=== PATIENT | female | born 1960 | race Caucasian/White ===

== ENCOUNTER 2024-09-11 06:45 | Day surgery (SDC) | payer BC, OTHER ==
[2024-09-09 11:10] VITALS: BMI 20.1
[2024-09-11] MEDS ORDERED: LIDOCAINE HCL 1%, 10 MG/ML (20ML VIAL) ONE (09:59)
[2024-09-11] MEDS ORDERED: HEPARIN NA (PORCINE) 5,000 UNITS/ML 1ML VIAL ONE ×2 (09:59→11:58)
[2024-09-11] MEDS ORDERED: PROPOFOL 20 ML ONE ×5 (10:20→12:39)
[2024-09-11] MEDS ORDERED: MIDAZOLAM HCL 2 MG/2 ML SINGLE DOSE VIAL ONE (10:21)
[2024-09-11] MEDS: ceFAZolin SODIUM 1 GM VIAL IVPB ONE (10:57)
[2024-09-11] MEDS: LIDOCAINE HCL 1%, 10 MG/ML (50 mL VIAL) INF ONE (11:00)
[2024-09-11] MEDS ORDERED: ASPIRIN COATED 81 MG TABLET.EC ONE (13:28)
[2024-09-11] MEDS ORDERED: ONDANSETRON 4 MG/2 ML VIAL ONE (14:23)
[2024-09-11] MEDS: RIVAROXABAN 2.5 MG TABLET PO SCH (14:28)
[2024-09-11] MEDS: ONDANSETRON 4 MG/2 ML VIAL IVPUSH PRN (14:28)
[2024-09-11] MEDS ORDERED: ASPIRIN 81 MG CHEWABLE TABLETS ONE (14:29)
[2024-09-11] MEDS: ASPIRIN 81 MG CHEWABLE TABLETS PO ONE (14:30)
[2024-09-11] MEDS: oxyCODONE HCL 5 MG TABLET PO PRN (15:32)
[2024-09-11] MEDS ORDERED: oxyCODONE HCL 5 MG TABLET ONE (15:34)
[2024-09-11 15:39] VITALS: BP 146/72; PULSE 79; RESP 20
[2024-09-11 15:43] VITALS: TEMP 97.3
== END 2024-09-11 16:17 | disposition home or self-care (01) ==
LOC: JASU-SURG 06:45
PROVIDERS: ATTEND Surgery
PROC: 047J3ZZ Dilation of Left External Iliac Artery, Percutaneous Approach (ICD-10-PCS; 2024-09-11)
PROC: 047D3FZ Dilation of Left Common Iliac Artery with Three Intraluminal Devices, Percutaneous Approach (ICD-10-PCS; principal; 2024-09-11 09:30)
DX: I70.212 Atherosclerosis of native arteries of extremities with intermittent claudication, left leg (principal); I70.92 Chronic total occlusion of artery of the extremities
CPT/HCPCS: 37221; 37223; C1877; 76000-TC-FY; 94760; C1760; C1874; C1876; J1644